=== PATIENT | female | born 1990 | race Two or more races ===

== ENCOUNTER 2023-06-04 04:17 | Inpatient (IN) | payer MEDICAID ==
[~2023-06-04] VITALS: Ht 162.6 cm; Wt 80.0 kg
[2023-06-04 04:39] VITALS: PULSE 79; RESP 20; O2SAT 99
[2023-06-04 05:37] LABS: Alanine Aminotransferase 22 U/L (7-40); Albumin 3.9 g/dL (3.2-4.8); Alkaline Phosphatase 79 U/L (46-116); Amylase 53 U/L (30-118); Anion Gap 8 (5-15); Aspartate Aminotransferase 89 U/L (13-40); BUN/Creatinine Ratio 14.7 (10.0-20.0); Blood Alcohol < 3.0 mg/dL (<10); Blood Urea Nitrogen 38 mg/dL (9-23); Calcium 8.5 mg/dL (8.7-10.4); Carbon Dioxide 26 mmol/L (20-30); Chloride 98 mmol/L (98-107); Glucose 155 mg/dL (74-106); Lipase 61 U/L (12-53); Magnesium 2.3 mg/dL (1.6-2.6); Sodium 132 mmol/L (136-145); Total Protein 6.5 g/dL (5.7-8.2)
[2023-06-04 05:38] LABS: Bilirubin, Total 3.3 mg/dL (0.2-1.0)
[2023-06-04 05:50] LABS: Basophils # (auto) 0 10 ^3/uL (0-0.2); Eosinophils # (auto) 0 10 ^3/uL (0-0.8); Eosinophils % (auto) 0.5 % (0.0-7.0); Lymphocytes # (auto) 0.6 10 ^3/uL (0.4-5.4)
[2023-06-04 05:53] LABS: Basophils % (auto) 0.3 % (0.0-2.0); Hemoglobin 11.5 g/dL (12.2-16.2); Lymphocytes % (auto) 6.4 % (10.0-50.0); Mean Corpuscular Hemoglobin 31.4 pg (28.0-32.0); Mean Corpuscular Hgb Conc. 34.9 g/dL (32.0-36.0); Monocytes # (auto) 0.5 10 ^3/uL (0-1.3); Monocytes % (auto) 5.2 % (0.0-12.0); Neutrophils # (auto) 8.2 10 ^3/uL (1.6-8.6); Neutrophils % (auto) 87.6 % (37.0-80.0); Nucleated Red Blood Cells % 0.1 %; Red Blood Cells 3.67 10^6/uL (4.0-5.20); White Blood Cell 9.4 10^3/uL (4.4-10.8)
[2023-06-04 05:57] LABS: Partial Thromboplastin Time 27.2 SEC (24.5-34.5); Prothrombin Time 10.5 sec (9.3-11.8)
[2023-06-04 06:33] LABS: Platelet Estimate Markedly Decreased
[2023-06-04 08:44] VITALS: PULSE 93; RESP 16; O2SAT 97
[2023-06-04 10:23] LABS: Basophils # (auto) 0 10 ^3/uL (0-0.2); Eosinophils # (auto) 0 10 ^3/uL (0-0.8); Hemoglobin 11.4 g/dL (12.2-16.2); Neutrophils # (auto) 6.7 10 ^3/uL (1.6-8.6); Red Cell Distribution Width 14.3 % (11.8-14.3); White Blood Cell 8.2 10^3/uL (4.4-10.8)
[2023-06-04 10:24] LABS: Basophils % (auto) 0.2 % (0.0-2.0); Eosinophils % (auto) 0.2 % (0.0-7.0); Hematocrit 32.2 % (36.0-46.0); Lymphocytes # (auto) 0.8 10 ^3/uL (0.4-5.4); Lymphocytes % (auto) 9.5 % (10.0-50.0); Mean Corpuscular Hemoglobin 31.7 pg (28.0-32.0); Mean Corpuscular Hgb Conc. 35.4 g/dL (32.0-36.0); Mean Corpuscular Volume 89.5 fL (80.0-100.0); Monocytes # (auto) 0.7 10 ^3/uL (0-1.3); Monocytes % (auto) 8.8 % (0.0-12.0); Neutrophils % (auto) 81.3 % (37.0-80.0); Nucleated Red Blood Cells % 0.3 %; Red Blood Cells 3.59 10^6/uL (4.0-5.20)
[2023-06-04] MEDS ORDERED: ONDANSETRON HCL 4 MG/2 ML VIAL IV ONE (11:15)
[2023-06-04] MEDS ORDERED: POTASSIUM EFFERVESENT TAB 25 MEQ PO ONE (12:00)
[2023-06-04] MEDS ORDERED: MORPHINE SULFATE INJ 2 MG/ml SYRG IV PRN (13:00)
[2023-06-04] MEDS ORDERED: NITROGLYCERIN 0.4 MG SL TAB SL PRN (13:00)
[2023-06-04] MEDS ORDERED: metroNIDAZOLE 500MG/100ML 100 ML IV ONE (13:15)
[2023-06-04] MEDS ORDERED: cefTRIAXone 1GM/50ML D5W 50 ML IV ONE (13:15)
[2023-06-04] MEDS: SODIUM CHLORIDE 0.9% 1,000 ML IV SCH ×2 (13:16→21:24)
[2023-06-04] MEDS ORDERED: PANTOPRAZOLE 40 MG/10 ML VIAL INJ IV ONE (14:00)
[2023-06-04] MEDS ORDERED: LORazepam 2MG/ML-1ML VIAL IV PRN (14:00)
[2023-06-04] MEDS ORDERED: SODIUM CHLORIDE 0.9% 2,000 ML IV ONE (14:00)
[2023-06-04 14:01] LABS: Triglycerides 331 mg/dL (< 150)
[2023-06-04 14:02] LABS: LDL Cholesterol 135 mg/dL (< 100)
[2023-06-04 14:03] LABS: Bilirubin, Total 2.9 mg/dL (0.2-1.0); Cholesterol 257 mg/dL (< 200); HDL Cholesterol 76 mg/dL (40-59)
[2023-06-04] MEDS ORDERED: SODIUM CHLORIDE 0.9% 1,000 ML IV SCH (14:30)
[2023-06-04 14:36] LABS: Lipase 59 U/L (12-53)
[2023-06-04 14:38] LABS: Amylase 53 U/L (30-118)
[2023-06-04] MEDS: MAGNESIUM SULFATE 1GM/100ML 100 ML IV SCH ×2 (15:13→16:34)
[2023-06-04 15:39] VITALS: BP 115/73; PULSE 97; RESP 18; TEMP 98.6
[2023-06-04 15:54] VITALS: BP 113/71; PULSE 110; RESP 20; TEMP 98.8
[2023-06-04 16:30] VITALS: BP 115/77; PULSE 100; RESP 24; TEMP 98.9
[2023-06-04] MEDS: MORPHINE SULFATE INJ 2 MG/ml SYRG IV PRN ×2 (17:10→20:01)
[2023-06-04 19:07] LABS: Erythrocyte Sedimentation Rate 44 mm/hr (0-20)
[2023-06-04] MEDS: metroNIDAZOLE 500MG/100ML 100 ML IV SCH (20:55)
[2023-06-05] VITALS (14 sets, daily range): BP systolic 105–125; BP diastolic 57–83; PULSE 97–112; RESP 16–20; TEMP 97.8–98.6; O2SAT 99
[2023-06-05] MEDS: MORPHINE SULFATE INJ 2 MG/ml SYRG IV PRN (02:32)
[2023-06-05] MEDS: metroNIDAZOLE 500MG/100ML 100 ML IV SCH ×3 (04:48→21:21)
[2023-06-05] MEDS: SODIUM CHLORIDE 0.9% 1,000 ML IV SCH ×2 (05:52→12:04)
[2023-06-05 06:05] LABS: Basophils # (auto) 0 10 ^3/uL (0-0.2); Hemoglobin 7.8 g/dL (12.2-16.2); Monocytes # (auto) 0.6 10 ^3/uL (0-1.3)
[2023-06-05 06:27] LABS: Alanine Aminotransferase 19 U/L (7-40); Albumin 3.2 g/dL (3.2-4.8); Alkaline Phosphatase 62 U/L (46-116); Anion Gap 11 (5-15); Aspartate Aminotransferase 69 U/L (13-40); BUN/Creatinine Ratio 19.5 (10.0-20.0); Bilirubin, Total 1.5 mg/dL (0.2-1.0); Calcium 7.9 mg/dL (8.5-10.1); Carbon Dioxide 22 mmol/L (20-30); Chloride 99 mmol/L (98-107); Glucose 114 mg/dL (74-106); Potassium 3.1 mmol/L (3.5-5.1); Sodium 132 mmol/L (136-145); Total Protein 5.2 g/dL (5.7-8.2)
[2023-06-05 06:35] LABS: Blood Urea Nitrogen 66 mg/dL (9-23)
[2023-06-05 07:55] LABS: Eosinophils # (auto) 0 10 ^3/uL (0-0.8); Nucleated Red Blood Cells % 0.4 %; White Blood Cell 5.8 10^3/uL (4.4-10.8)
[2023-06-05 07:59] LABS: Basophils % (auto) 0.4 % (0.0-2.0); Eosinophils % (auto) 0.9 % (0.0-7.0); Hematocrit 22.2 % (36.0-46.0); Lymphocytes % (auto) 16.8 % (10.0-50.0); Mean Corpuscular Hemoglobin 31.8 pg (28.0-32.0); Mean Corpuscular Hgb Conc. 35.2 g/dL (32.0-36.0); Mean Corpuscular Volume 90.3 fL (80.0-100.0); Monocytes % (auto) 10.9 % (0.0-12.0); Neutrophils # (auto) 4.1 10 ^3/uL (1.6-8.6); Red Blood Cells 2.46 10^6/uL (4.0-5.20); Red Cell Distribution Width 14.7 % (11.8-14.3)
[2023-06-05] MEDS: cefTRIAXone 1GM/50ML D5W 50 ML IV SCH (09:14)
[2023-06-05] MEDS ORDERED: FOLIC ACID 1 MG in D5W 5% 50 ML INJ SCH (10:00)
[2023-06-05] MEDS ORDERED: THIAMINE 100mg/ml INJ (200mg/2ml VIAL) IV SCH (10:00)
[2023-06-05] MEDS: PANTOPRAZOLE 40 MG/10 ML VIAL INJ IV SCH (10:06)
[2023-06-05 11:58] LABS: Basophils # (auto) 0 10 ^3/uL (0-0.2); Eosinophils # (auto) 0 10 ^3/uL (0-0.8); Lymphocytes # (auto) 0.9 10 ^3/uL (0.4-5.4); Monocytes # (auto) 0.5 10 ^3/uL (0-1.3)
[2023-06-05] MEDS ORDERED: FOLIC ACID 1 MG, MULTIPLE VITAMIN 10 ML, MAGNESIUM SULF SDV 50% 8 MEQ, THIAMINE INJ 100... INJ SCH ×5 (12:00)
[2023-06-05 12:02] LABS: Basophils % (auto) 0.6 % (0.0-2.0); Eosinophils % (auto) 0.6 % (0.0-7.0); Hemoglobin 7.3 g/dL (12.2-16.2); Lymphocytes % (auto) 16.3 % (10.0-50.0); Mean Corpuscular Hemoglobin 31.2 pg (28.0-32.0); Mean Corpuscular Hgb Conc. 34.9 g/dL (32.0-36.0); Mean Corpuscular Volume 89.4 fL (80.0-100.0); Monocytes % (auto) 8.4 % (0.0-12.0); Neutrophils # (auto) 4.3 10 ^3/uL (1.6-8.6); Neutrophils % (auto) 74.1 % (37.0-80.0); Nucleated Red Blood Cells % 0.3 %; Red Blood Cells 2.35 10^6/uL (4.0-5.20); Red Cell Distribution Width 14.4 % (11.8-14.3); White Blood Cell 5.8 10^3/uL (4.4-10.8)
[2023-06-05] MEDS ORDERED: methylPREDNISolone SOD SUCC 125 MG/2 ML VL IV ONE (12:30)
[2023-06-05] MEDS: POTASSIUM CHL 20MEQ/100ML 100 ML IV SCH ×3 (12:53→17:07)
[2023-06-05 12:55] LABS: Platelet Estimate Markedly Decreased; Stomatocytes Few
[2023-06-05] MEDS: methylPREDNISolone SOD SUCC 125 MG/2 ML VL IV SCH ×2 (14:35→21:21)
[2023-06-05] MEDS ORDERED: NITROGLYCERIN 0.4 MG SL TAB SL PRN (15:45)
[2023-06-05] MEDS ORDERED: ACETAMINOPHEN 500 MG TAB PO ONE (16:30)
[2023-06-05 17:35] LABS: Urine Bacteria FEW /hpf (None Seen); Urine Blood 3+ /uL (Negative); Urine Clarity HAZY (Clear); Urine Color Yellow (Yellow); Urine Mucus FEW (None Seen); Urine Protein, UAD 3+ (Negative); Urine Specific Gravity 1.013 (1.001-1.035); Urine Urobilinogen Normal (Negative); Urine WBC 13 /hpf (0 - 5)
[2023-06-05 17:50] LABS: Amphetamine Screen, Urine Neg (NEGATIVE); Barbiturate Scree,Urine Neg (NEGATIVE); Benzodiazephine Screen, Urine Neg (NEGATIVE); Cannabinoid Screen, Urine Neg (NEGATIVE); Cocaine Screen, Urine Neg (NEGATIVE); Creatinine, Urine 107.99 mg/dL (30.0-125.0); Opiate Scree,Urine Pos (NEGATIVE); Phencyclidine Screen, Urine Neg (NEGATIVE)
[2023-06-05 17:53] LABS: Protein, Urine 406.8 mg/dL (0.0-11.9); Urine Protein/Creatinine Ratio 3.77
[2023-06-06] VITALS (8 sets, daily range): BP systolic 129–152; BP diastolic 79–102; PULSE 94–102; RESP 16–25; TEMP 97.8–98.4; O2SAT 94–95
[2023-06-06] MEDS: SODIUM CHLORIDE 0.9% 1,000 ML IV SCH ×4 (01:00→20:03)
[2023-06-06] MEDS: methylPREDNISolone SOD SUCC 125 MG/2 ML VL IV SCH ×3 (05:25→21:45)
[2023-06-06] MEDS: metroNIDAZOLE 500MG/100ML 100 ML IV SCH ×3 (05:25→21:33)
[2023-06-06 05:35] LABS: Basophils # (auto) 0 10 ^3/uL (0-0.2); Basophils % (auto) 0.1 % (0.0-2.0); Eosinophils # (auto) 0 10 ^3/uL (0-0.8); Monocytes # (auto) 0.2 10 ^3/uL (0-1.3); Red Cell Distribution Width 15.4 % (11.8-14.3)
[2023-06-06 05:42] LABS: Eosinophils % (auto) 0.1 % (0.0-7.0); Hematocrit 19.7 % (36.0-46.0); Lymphocytes # (auto) 0.5 10 ^3/uL (0.4-5.4); Lymphocytes % (auto) 9.6 % (10.0-50.0); Mean Corpuscular Hemoglobin 31.2 pg (28.0-32.0); Mean Corpuscular Hgb Conc. 35.4 g/dL (32.0-36.0); Mean Corpuscular Volume 88.2 fL (80.0-100.0); Monocytes % (auto) 3.8 % (0.0-12.0); Neutrophils # (auto) 4.9 10 ^3/uL (1.6-8.6); Neutrophils % (auto) 86.4 % (37.0-80.0); Nucleated Red Blood Cells % 0.5 %; Red Blood Cells 2.23 10^6/uL (4.0-5.20); White Blood Cell 5.7 10^3/uL (4.4-10.8)
[2023-06-06 05:47] LABS: Alanine Aminotransferase 25 U/L (7-40); Albumin 3.6 g/dL (3.2-4.8); Alkaline Phosphatase 96 U/L (46-116); Anion Gap 10 (5-15); Aspartate Aminotransferase 73 U/L (13-40); BUN/Creatinine Ratio 19.5 (10.0-20.0); Calcium 8.1 mg/dL (8.7-10.4); Carbon Dioxide 21 mmol/L (20-30); Chloride 100 mmol/L (98-107); Glucose 161 mg/dL (74-106); Sodium 131 mmol/L (136-145)
[2023-06-06 05:48] LABS: Bilirubin, Total 2.5 mg/dL (0.2-1.0)
[2023-06-06 05:59] LABS: Blood Urea Nitrogen 54 mg/dL (9-23)
[2023-06-06 06:39] LABS: Platelet Estimate 26
[2023-06-06] MEDS: cefTRIAXone 1GM/50ML D5W 50 ML IV SCH (08:00)
[2023-06-06] MEDS: PANTOPRAZOLE 40 MG/10 ML VIAL INJ IV SCH (08:47)
[2023-06-06] MEDS: MORPHINE SULFATE INJ 2 MG/ml SYRG IV PRN ×3 (08:48→21:46)
[2023-06-06 09:20] LABS: Hepatitis B Surface Antigen Negative (Negative)
[2023-06-06 09:41] LABS: Hepatitis A Ab IgM Negative
[2023-06-06 09:42] LABS: Hepatitis B Core IgM Negative; Hepatitis C Antibody Negative (Negative)
[2023-06-06 12:29] LABS: Hematocrit 19.8 % (36.0-46.0)
[2023-06-06 12:39] LABS: Hemoglobin 6.9 g/dL (12.2-16.2)
[2023-06-06] MEDS ORDERED: HYDROcodone-ACET 5/325MG TAB PO PRN (15:00)
[2023-06-06] MEDS ORDERED: MORPHINE SULFATE INJ 2 MG/ml SYRG IV ONE (15:00)
[2023-06-06 19:29] LABS: Basophils # (auto) 0 10 ^3/uL (0-0.2); Eosinophils # (auto) 0 10 ^3/uL (0-0.8); Hematocrit 25.3 % (36.0-46.0); Lymphocytes # (auto) 0.9 10 ^3/uL (0.4-5.4); Mean Corpuscular Hemoglobin 30.7 pg (28.0-32.0); Neutrophils # (auto) 9.4 10 ^3/uL (1.6-8.6); Nucleated Red Blood Cells % 0.8 %
[2023-06-06 19:31] LABS: Basophils % (auto) 0.3 % (0.0-2.0); Hemoglobin 8.6 g/dL (12.2-16.2); Lymphocytes % (auto) 8.5 % (10.0-50.0); Mean Corpuscular Hgb Conc. 34.2 g/dL (32.0-36.0); Mean Corpuscular Volume 89.6 fL (80.0-100.0); Monocytes # (auto) 0.6 10 ^3/uL (0-1.3); Monocytes % (auto) 5.8 % (0.0-12.0); Neutrophils % (auto) 85.4 % (37.0-80.0); Red Blood Cells 2.82 10^6/uL (4.0-5.20); Red Cell Distribution Width 15.2 % (11.8-14.3)
[2023-06-06] MEDS ORDERED: cloNIDine HCL 0.1 MG TAB PO ONE (23:15)
[2023-06-07] MEDS: SODIUM CHLORIDE 0.9% 1,000 ML IV SCH (04:06)
[2023-06-07] MEDS: metroNIDAZOLE 500MG/100ML 100 ML IV SCH ×3 (05:15→21:39)
[2023-06-07] MEDS: MORPHINE SULFATE INJ 2 MG/ml SYRG IV PRN ×2 (05:29→11:49)
[2023-06-07] MEDS: methylPREDNISolone SOD SUCC 125 MG/2 ML VL IV SCH ×3 (05:31→21:39)
[2023-06-07 07:15] LABS: Basophils # (auto) 0 10 ^3/uL (0-0.2); Eosinophils # (auto) 0 10 ^3/uL (0-0.8); Lymphocytes # (auto) 1.2 10 ^3/uL (0.4-5.4); Mean Corpuscular Hemoglobin 30.5 pg (28.0-32.0); Monocytes # (auto) 0.8 10 ^3/uL (0-1.3)
[2023-06-07 07:18] LABS: Basophils % (auto) 0.1 % (0.0-2.0); Hematocrit 23.4 % (36.0-46.0); Lymphocytes % (auto) 10.5 % (10.0-50.0); Mean Corpuscular Hgb Conc. 34.2 g/dL (32.0-36.0); Mean Corpuscular Volume 89.2 fL (80.0-100.0); Monocytes % (auto) 6.9 % (0.0-12.0); Neutrophils # (auto) 9.5 10 ^3/uL (1.6-8.6); Neutrophils % (auto) 82.5 % (37.0-80.0); Nucleated Red Blood Cells % 1.6 %; Red Blood Cells 2.62 10^6/uL (4.0-5.20); Red Cell Distribution Width 15.8 % (11.8-14.3); White Blood Cell 11.5 10^3/uL (4.4-10.8)
[2023-06-07 07:25] LABS: Alanine Aminotransferase 43 U/L (7-40); Albumin 3.6 g/dL (3.2-4.8); Alkaline Phosphatase 81 U/L (46-116); Anion Gap 10 (5-15); Aspartate Aminotransferase 90 U/L (13-40); BUN/Creatinine Ratio 25.8 (10.0-20.0); Bilirubin, Total 2.8 mg/dL (0.2-1.0); Blood Urea Nitrogen 62 mg/dL (9-23); Calcium 8.1 mg/dL (8.7-10.4); Carbon Dioxide 21 mmol/L (20-30); Chloride 102 mmol/L (98-107); Glucose 175 mg/dL (74-106); Potassium 4.2 mmol/L (3.5-5.1); Sodium 133 mmol/L (136-145); Total Protein 5.9 g/dL (5.7-8.2)
[2023-06-07 08:09] LABS: Platelet Estimate Markedly Decreased
[2023-06-07 10:30] VITALS: PULSE 102
[2023-06-07] MEDS ORDERED: SODIUM CHLORIDE 0.9% 1,000 ML IV SCH ×2 (10:30→15:15)
[2023-06-07] MEDS: cefTRIAXone 1GM/50ML D5W 50 ML IV SCH (11:48)
[2023-06-07] MEDS: PANTOPRAZOLE 40 MG/10 ML VIAL INJ IV SCH (11:48)
[2023-06-07 12:22] VITALS: BP 137/106; PULSE 92; RESP 20; TEMP 97.6; O2SAT 96
[2023-06-07 13:06] LABS: Anti-Centromere B Antibody <0.2 AI (0.0-0.9); Anti-Jo-1 Antibody <0.2 AI (0.0-0.9); Anti-dsDNA Antibody <1 IU/mL (0-9); Antichromatin Antibody <0.2 AI (0.0-0.9); Antiscleroderma-70 Antibody <0.2 AI (0.0-0.9); RNP Antibody <0.2 AI (0.0-0.9); Sjogren's Anti-SS-A Antibody 0.8 AI (0.0-0.9); Sjogren's Anti-SS-B Antibody 0.2 AI (0.0-0.9); Smith Antibody <0.2 AI (0.0-0.9)
[2023-06-07 17:00] VITALS: BP 147/102; PULSE 76; RESP 20; TEMP 97.8; O2SAT 99
[2023-06-07 20:00] VITALS: PULSE 119
[2023-06-07] MEDS ORDERED: FUROSEMIDE 40 MG/4 ML VIAL IV ONE (20:00)
[2023-06-07] MEDS ORDERED: FUROSEMIDE 40 MG/4 ML VIAL ONE (20:02)
[2023-06-07] MEDS: LORazepam 2MG/ML-1ML VIAL IV PRN ×2 (20:36→21:58)
[2023-06-07 21:37] LABS: Alanine Aminotransferase 76 U/L (7-40); Albumin 3.9 g/dL (3.2-4.8); Alkaline Phosphatase 89 U/L (46-116); Anion Gap 17 (5-15); Aspartate Aminotransferase 184 U/L (13-40); BUN/Creatinine Ratio 27.8 (10.0-20.0); Bilirubin, Total 4.1 mg/dL (0.2-1.0); Calcium 8.1 mg/dL (8.7-10.4); Carbon Dioxide 15 mmol/L (20-30); Chloride 102 mmol/L (98-107); Glucose 255 mg/dL (74-106); Potassium 4.5 mmol/L (3.5-5.1); Sodium 134 mmol/L (136-145); Total Protein 6.4 g/dL (5.7-8.2)
[2023-06-07 21:38] LABS: Blood Urea Nitrogen 73 mg/dL (9-23)
[2023-06-07] MEDS ORDERED: LORazepam 2MG/ML-1ML VIAL IV PRN (22:15)
[2023-06-07] MEDS ORDERED: ROCURONIUM 10MG/ML 10ML VIAL IV ONE (22:30)
[2023-06-07] MEDS ORDERED: EPINEPHrine HCL 250 ML IV ONE (22:46)
[2023-06-07 22:55] VITALS: BP_SYST 0; PULSE 24; RESP 0; O2SAT 0
[2023-06-07] MEDS ORDERED: SODIUM BICARBONATE 8.4 % INJ 50ML VIAL IV ONE (22:56)
[2023-06-07] MEDS ORDERED: methylPREDNISolone SOD SUCC 125 MG/2 ML VL ONE (22:56)
[2023-06-08] MEDS ORDERED: SODIUM BICARBONATE 8.4% INJ 50ML SYRINGE IV ONE (03:59)
[2023-06-08] MEDS ORDERED: EPINEPHrine HCL 1 MG/10 ML SYRG IV ONE (03:59)
[2023-06-08] MEDS ORDERED: ATROPINE SULF 1 MG/10ml SYR IV ONE (03:59)
[2023-06-08 04:28] VITALS: BP_SYST 0; PULSE 0; RESP 0; O2SAT 0
[2023-06-08 06:40] VITALS: BP 125/90; RESP 30; O2SAT 100
[2023-06-08 07:08] LABS: Immunoglobulin A 129 mg/dL (87-352); Immunoglobulin G, Serum 785 mg/dL (586-1602); Immunoglobulin M 78 mg/dL (26-217)
[2023-06-08 13:07] LABS: Albumin 2.4 g/dL (2.9-4.4); Alpha-1-Globulin 0.2 g/dL (0.0-0.4); Alpha-2-Globulin 0.4 g/dL (0.4-1.0); Gamma Globulin 1.5 g/dL (0.4-1.8); Globulin Total 3.2 g/dL (2.2-3.9); Protein Total Serum 5.6 g/dL (6.0-8.5)
[2023-06-08 14:06] LABS: Kappa Lite Chain Free Serum 26.4 mg/L (3.3-19.4)
[2023-06-10 11:06] LABS: Anti-dsDNA Antibody <1 IU/mL (0-9)
[2023-06-10 18:06] LABS: Antithrombin III Antigen 118 % (72-124)
== END 2023-06-08 04:00 | DRG 280 ==
LOC: EDBD 04:17 → EDUNIT# 04:17 → ER 04:17 → TELE 13:01 → TELE-EAST 06-07 09:28 → ICU WEST 06-07 22:59
PROVIDERS: ADMIT Nurse Practitioner Family; ATTEND Internal Medicine
PROC: 30233R1 Transfusion of Nonautologous Platelets into Peripheral Vein, Percutaneous Approach (ICD-10-PCS; principal; 2023-06-04)
PROC: 30233N1 Transfusion of Nonautologous Red Blood Cells into Peripheral Vein, Percutaneous Approach (ICD-10-PCS; 2023-06-06)
PROC: 5A12012 Performance of Cardiac Output, Single, Manual (ICD-10-PCS; 2023-06-08)
DX: K70.40 Alcoholic hepatic failure without coma (principal); K70.30 Alcoholic cirrhosis of liver without ascites; N17.0 Acute kidney failure with tubular necrosis; I21.4 Non-ST elevation (NSTEMI) myocardial infarction; G93.41 Metabolic encephalopathy; D69.6 Thrombocytopenia, unspecified; J90 Pleural effusion, not elsewhere classified; E87.1 Hypo-osmolality and hyponatremia; D63.8 Anemia in other chronic diseases classified elsewhere; N18.4 Chronic kidney disease, stage 4 (severe); E87.6 Hypokalemia; K76.0 Fatty (change of) liver, not elsewhere classified; E78.1 Pure hyperglyceridemia; N39.0 Urinary tract infection, site not specified; E66.01 Morbid (severe) obesity due to excess calories; K52.9 Noninfective gastroenteritis and colitis, unspecified; R56.9 Unspecified convulsions; Z71.3 Dietary counseling and surveillance; F10.139 Alcohol abuse with withdrawal, unspecified; K29.70 Gastritis, unspecified, without bleeding; E78.00 Pure hypercholesterolemia, unspecified; F17.210 Nicotine dependence, cigarettes, uncomplicated; H54.7 Unspecified visual loss; Z68.30 Body mass index [BMI] 30.0-30.9, adult; I46.9 Cardiac arrest, cause unspecified; Z79.899 Other long term (current) drug therapy; Z82.3 Family history of stroke
CPT/HCPCS: 36415; 70450; 71045; 71046; 74176; 76705; 80053; 80061; 80074; 80307; 80320; 81001; 82140; 82150; 82247; 82248; 82570; 82607; 82784; 82962; 83010; 83516; 83520; 83605; 83615; 83690; 83735; 83880; 83883; 83930; 84155; 84156; 84165; 84436; 84443; 84484; 84702; 85014; 85018; 85025; 85045; 85301; 85610; 85652; 85730; 86038; 86141; 86160; 86200; 86225; 86235; 86256; 86334; 86431; 86592; 86703; 86850; 86880; 86885; 86900; 86901; 86920; 87081; 93005; 93306; 96365; 96367; 96375; 96376; C9113; G0378; J0171; J0696; J2405; J3480; J3490; J7060